=== PATIENT | female | born 1980 | race Caucasian/White ===

== ENCOUNTER 2019-05-26 21:27 | Emergency (ER) | payer OTHER ==
[~2019-05-26] VITALS: Ht 152.4 cm; Wt 93.9 kg
[2019-05-26 21:40] VITALS: BP 137/78
--- NOTE | 2019-05-26 22:02 | NUR ---
Dr. Michael examining patient.
--- NOTE | 2019-05-26 22:05 | NUR ---
38 YO FEMALE PT CO NAUSEA SINCE THIS EVENING. PT STATES THAT SHE FEELS LIKE SHE IS GOING TO THROW UP AND IS A LITTLE DIZZY. PT ATE STEAK AND MASHED POTATOES FOR DINNER 3 HOURS AGO. BS ACTIVE IN ALL QUADS.
[2019-05-26] MEDS ORDERED: MECLIZINE 25 MG TAB PO ONE (22:20)
--- NOTE | 2019-05-26 22:26 | NUR ---
PT TAKEN TO CT
--- NOTE | 2019-05-26 23:47 | NUR ---
Dr. Michael examining patient.
[2019-05-26 23:56] VITALS: BP 137/78
--- NOTE | 2019-05-26 23:56 | NUR ---
Patient discharged with v/s stable. Written and verbal after care instructions given and explained. Patient alert, oriented and verbalized understanding of instructions. Ambulatory with steady gait. All questions addressed prior to discharge. ID band removed. Patient advised to follow up with PMD. Rx of MECLAZINE given. Patient educated on indication of medication including possible reaction and side effects. Opportunity to ask questions provided and answered.
== END 2019-05-26 23:56 | disposition home or self-care (01) ==
LOC: MED 21:27
DX: R42 Dizziness and giddiness (principal); R11.0 Nausea
CPT/HCPCS: 70450; 81002; 81025; 99284; J8597